=== PATIENT | female | born 1965 | race American Indian/Alaskan Native ===

== ENCOUNTER 2019-04-22 10:45 | Emergency (ER) | payer SELFPAY ==
[2019-04-22] MEDS ORDERED: cephALEXin 500 MG CAP PO ONE (12:02)
[2019-04-22] MEDS ORDERED: PHENAZOPYRIDINE 200 MG TAB PO ONE (12:02)
--- NOTE | 2019-04-22 12:06 | Emergency Department Report ---
ED Female HPI - General Stated complaint: LT LOWER SIDE PAIN/PELVIC AREA Time Seen by Provider: 04/22/19 11:59 Source: patient Mode of arrival: Ambulatory Limitations: No Limitations - History of Present Illness Initial comments: Chief complaint: Ago have a UTI." Mrs. Clemens is a very pleasant 53 yo female with hx of HTN who presents with UTI symptoms. She has dysuria and frequency. History of tubal ligation. Mild symptoms which began 2 days ago. Denies fever, back pain, vomiting. MD Complaint: dysuria -: Gradual, days(s) (2) Severity: mild Severity scale (0 -10): 4 Quality: aching, other (burning with urination) Consistency: intermittent Improves with: none Worsens with: urination Are you Now?: No - Related Data Previous Rx's Medication Instructions Recorded Last Taken Type Ibuprofen [Motrin] 600 mg PO Q8H PRN #40 tablet 09/25/14 Unknown Rx traMADoL [Ultram] 50 mg PO Q6HR PRN #20 tablet 09/25/14 Unknown Rx Amoxicillin/K Clav Tab [Augmentin 1 tab PO Q12HR #20 tab 04/18/15 Unknown Rx 875 mg] Fluticasone [Flonase] 2 spray NS QDAY #1 bottle 04/18/15 Unknown Rx Prednisone [predniSONE 10 mg 10 mg PO .TAPER #1 tab.ds.pk 04/18/15 Unknown Rx (6-Day Pack, 21 Tabs)] Promethazine /Codeine 5 ml PO Q6H PRN #150 ml 04/18/15 Unknown Rx [Phenergan/Codeine 6.25-10 mg/5 ml] Azithromycin [Zithromax Z-SADAF] 250 mg PO DAILY #6 tab 05/28/15 Unknown Rx Mometasone Furoate [Nasonex] 2 spray NS QDAY #1 bottle 05/28/15 Unknown Rx amLODIPine 10 mg PO DAILY #30 tab 04/14/18 Unknown Rx hydroCHLOROthiazide [HCTZ] 25 mg PO QDAY #30 tablet 04/14/18 Unknown Rx Clotrimazole 1% [Lotrimin 1%] 1 applic TP BID 28 Days #1 tube 07/18/18 Unknown Rx Fluconazole [Diflucan TAB] 100 mg PO QWEEK #4 tablet 07/18/18 Unknown Rx Phenazopyridine [Pyridium] 200 mg PO TID 2 Days #6 tab 04/22/19 Unknown Rx cephALEXin [Keflex] 500 mg PO QID 5 Days #20 capsule 04/22/19 Unknown Rx Allergies Allergy/AdvReac Type Severity Reaction Status Date / Time nitrofurantoin Allergy Hives Verified 07/18/18 16:33 macrocrystalline [From Macrodantin] ED Review of Systems ROS: Stated complaint: LT LOWER SIDE PAIN/PELVIC AREA Other details as noted in HPI Constitutional: denies: diaphoresis, fever, malaise Gastrointestinal: denies: abdominal pain, nausea, diarrhea Genitourinary: as per HPI, urgency, dysuria, frequency. denies: hematuria, discharge Musculoskeletal: denies: back pain ED Past Medical Hx - Past Medical History Hx Hypertension: Yes Hx Asthma: Yes - Surgical History Additional Surgical History: Tubal ligation - Social History Smoking Status: Never Smoker - Medications Home Medications: Home Medications Medication Instructions Recorded Confirmed Last Taken Type Ibuprofen [Motrin] 600 mg PO Q8H PRN #40 tablet 09/25/14 Unknown Rx traMADoL [Ultram] 50 mg PO Q6HR PRN #20 tablet 09/25/14 Unknown Rx Amoxicillin/K Clav Tab [Augmentin 1 tab PO Q12HR #20 tab 04/18/15 Unknown Rx 875 mg] Fluticasone [Flonase] 2 spray NS QDAY #1 bottle 04/18/15 Unknown Rx Prednisone [predniSONE 10 mg 10 mg PO .TAPER #1 tab.ds.pk 04/18/15 Unknown Rx (6-Day Pack, 21 Tabs)] Promethazine /Codeine 5 ml PO Q6H PRN #150 ml 04/18/15 Unknown Rx [Phenergan/Codeine 6.25-10 mg/5 ml] Azithromycin [Zithromax Z-SADAF] 250 mg PO DAILY #6 tab 05/28/15 Unknown Rx Mometasone Furoate [Nasonex] 2 spray NS QDAY #1 bottle 05/28/15 Unknown Rx amLODIPine 10 mg PO DAILY #30 tab 04/14/18 Unknown Rx hydroCHLOROthiazide [HCTZ] 25 mg PO QDAY #30 tablet 04/14/18 Unknown Rx Clotrimazole 1% [Lotrimin 1%] 1 applic TP BID 28 Days #1 tube 07/18/18 Unknown Rx Fluconazole [Diflucan TAB] 100 mg PO QWEEK #4 tablet 07/18/18 Unknown Rx Phenazopyridine [Pyridium] 200 mg PO TID 2 Days #6 tab 04/22/19 Unknown Rx cephALEXin [Keflex] 500 mg PO QID 5 Days #20 capsule 04/22/19 Unknown Rx ED Physical Exam - General Limitations: No Limitations General appearance: alert, in no apparent distress, other (well-appearing no apparent discomfort or distress normal steady gait) - Head Head exam: Present: atraumatic, normocephalic - Eye Eye exam: Present: normal appearance - ENT ENT exam: Present: mucous membranes moist - Neck Neck exam: Present: normal inspection, full ROM - Respiratory Respiratory exam: Present: normal lung sounds bilaterally. Absent: respiratory distress, wheezes, rales, rhonchi - Cardiovascular Cardiovascular Exam: Present: regular rate, normal rhythm, normal heart sounds. Absent: systolic murmur, diastolic murmur, rubs, gallop - GI/Abdominal GI/Abdominal exam: Present: soft, normal bowel sounds. Absent: distended, tenderness, guarding, rebound - Extremities Exam Extremities exam: Present: normal inspection - Back Exam Back exam: Present: normal inspection - Neurological Exam Neurological exam: Present: alert, oriented X3 - Psychiatric Psychiatric exam: Present: normal affect, normal mood - Skin Skin exam: Present: warm, dry, intact, normal color. Absent: rash ED Course Vital Signs 04/22/19 11:02 Temperature 98.4 F Pulse Rate 81 Respiratory 17 Rate Blood Pressure 147/102 O2 Sat by Pulse 98 Oximetry ED Medical Decision Making - Medical Decision Making Clinical impression: Urinary tract infection prescribed cephalexin and Pyridium Critical care attestation.: If time is entered above; I have spent that time in minutes in the direct care of this critically ill patient, excluding procedure time. ED Disposition Clinical Impression: Urinary tract infection Disposition: DC- TO HOME OR SELFCARE Is pt being admited?: No Does the pt Need Aspirin: No Condition: Stable Instructions: Urinary Tract Infection in Women (ED) Prescriptions: cephALEXin [Keflex] 500 mg PO QID 5 Days #20 capsule Phenazopyridine [Pyridium] 200 mg PO TID 2 Days #6 tab Referrals: KIKI LONG DO [Staff Physician] - as needed Forms: Work/School Release Form
[2019-04-22 12:23] VITALS: BP 136/100
[2019-04-22] MEDS ORDERED: IBUPROFEN 800 MG TAB PO ONE (12:34)
[2019-04-22] MEDS ORDERED: IBUPROFEN 800 MG TAB ONE (12:36)
== END 2019-04-22 12:20 | disposition home or self-care (01) ==
LOC: ED 10:45
DX: N39.0 Urinary tract infection, site not specified (principal)
CPT/HCPCS: 99282